=== PATIENT | female | born 1955 | race Caucasian/White ===

== ENCOUNTER 2020-10-01 16:26 | Emergency (ER) | payer OTHER ==
[~2020-10-01] VITALS: Ht 157.5 cm; Wt 100.9 kg
[~2020-10-01 16:26] MED LIST: ALBUTEROL INHAL17 GM IH; BENTYL 20 MG TA20 M1 PO; CEFTIN500 MG PO; GABAPENTIN300 MG PO; NEXIUM10 MG PO; NORCO 10-325 T1 EACH PO; PHENERGAN 25 MG25 M1 PO; TRAZODONE 50 MG50 M1 OR
[2020-10-01] MEDS ORDERED: INDERAL60 MG PO (17:33)
[2020-10-01] MEDS ORDERED: PREDNISONE 10 M10 MG PO (17:33)
[2020-10-01] MEDS ORDERED: LATUDA120 MG PO (17:34)
[2020-10-01] MEDS ORDERED: DOXEPIN 50MG CA50 M1 PO (17:34)
[2020-10-01] MEDS ORDERED: CALCITONIN-SAL3.7 ML NARES (17:34)
[2020-10-01] MEDS ORDERED: ALPRAZOLAM2 MG PO (17:35)
[2020-10-01] MEDS ORDERED: AIMOVIG AU140 MG/1 M SUBQ (17:35)
[2020-10-01] MEDS ORDERED: PERCOCET 10-321 EACH PO (17:35)
[2020-10-01] MEDS ORDERED: AMBIEN CR12.5 MG PO (17:36)
[2020-10-01] MEDS ORDERED: GARAMYCIN5 ML OPHTHALMIC (17:36)
[2020-10-01] MEDS ORDERED: FLEXERIL PO (17:36)
[2020-10-01] MEDS ORDERED: PROTONIX40 M2 PO (17:37)
[2020-10-01] MEDS ORDERED: POTASSIUM CHLO20 ME2 PO (17:37)
[2020-10-01] MEDS ORDERED: LAMOTRIGINE200 MG PO (17:38)
[2020-10-01] MEDS ORDERED: HYDROXYZINE HCL25 M2 PO (17:38)
[2020-10-01] MEDS ORDERED: BUPROPION HCL150 M1 PO (17:38)
[2020-10-01] MEDS ORDERED: VENTOLIN HFA 1818 GM INH (17:39)
[2020-10-01 17:40] LABS: ABSOLUTE NEUTROPHILS 7.2 thou/uL (1.4-8.2); BASOPHILS 0.5 % (0.0-2.0); HEMATOCRIT 40.2 % (37.0-47.0); LYMPHOCYTES 8.3 % (24.0-44.0); MCH 27.1 pg (26.0-34.0); MCHC 32.3 g/dL (28.0-37.0); MCV 83.7 fL (80.0-100.0); MONOCYTES 0.9 % (1.0-8.0); PLATELET COUNT 106 thou/uL (150-400); POLYS 90.3 % (36.0-66.0); RDW 13.3 % (10.5-14.5)
[2020-10-01 17:52] LABS: CALCIUM 8.6 mg/dL (8.5-10.1); CREATININE 1.3 mg/dL (0.6-1.0); POTASSIUM 4.6 mmol/L (3.5-5.1)
[2020-10-01] MEDS ORDERED: LEVOFLOXACIN750 MG PO (18:52)
[2020-10-01] MEDS ORDERED: DOXYCYCLINE 10100 MG PO (19:12)
[2020-10-01 19:24] VITALS: BP 165/84
--- NOTE | 2020-10-02 07:22 | EKG ---
[place] [address] [facility] [place] [address] ELECTROCARDIOGRAM REPORT Name: APRILTERESA Room #: [facility] [id number] Admission: 10/01/20 Attend Phys: Discharge: 10/01/20 Date of : 55 Report #: [id number] [facility] ED Test Date: 2020-10-01 Test Time: 18:57:11 Pat Name: TERESA CHEN Department: Room: Gender: F Import Export Manager: KF : 1955 Requested By: Antione Jennings Order Number: [id number] MD: Obdulio Cruz Measurements Intervals [place] Rate: 82 P: 45 MT: 149 QRS: 9 QRSD: 87 T: 33 QT: 371 QTc: 434 Interpretive Statements Sinus rhythm Compared to ECG 12/29/2002 20:12:39 Sinus tachycardia no longer present Accelerated junctional rhythm no longer present Myocardial infarct finding no longer present Electronically Signed On 10-02-2020 7:22:28 CDT by Obdulio Cruz [email or web address] <ELECTRONICALLY SIGNED> By: Obdulio Cruz MD, [facility] 10/02/20 0722 [id number] Obdulio Cruz MD, FACC /EPI
== END 2020-10-01 19:25 | disposition home or self-care (01) ==
LOC: ER 16:26
PROVIDERS: Nurse Practitioner
DX: R05 Cough (principal); Z20.822 Contact with and (suspected) exposure to COVID-19; E66.9 Obesity, unspecified; I10 Essential (primary) hypertension; K21.9 Gastro-esophageal reflux disease without esophagitis; J45.909 Unspecified asthma, uncomplicated; Z88.5 Allergy status to narcotic agent; Z88.6 Allergy status to analgesic agent; Z88.8 Allergy status to other drugs, medicaments and biological substances; Z79.899 Other long term (current) drug therapy; Z90.710 Acquired absence of both cervix and uterus